=== PATIENT | female | born 1995 | race Caucasian/White ===

== ENCOUNTER → 2017-01-02 | Outpatient (CLI) | payer OTHER, MEDICAID ==
[2017-01-02 21:50] LABS: Hepatitis B Surface Antibody POSITIVE (Negative)
== END | disposition home or self-care (01) ==
LOC: MMGSC 13:37
PROVIDERS: ATTEND Family Medicine
DX: Z01.84 Encounter for antibody response examination (principal)
CPT/HCPCS: 36415; 86706; 86787

== ENCOUNTER → 2017-07-19 | Outpatient (CLI) | payer OTHER | END | disposition home or self-care (01) | LOC: MMGSC 09:37 | PROVIDERS: ATTEND Obstetrics & Gynecology | DX: M25.50 Pain in unspecified joint (principal) | CPT/HCPCS: 36415; 85660 ==